=== PATIENT | female | born 1960 | race Caucasian/White ===

== ENCOUNTER 2017-02-07 13:26 | Emergency (ER) | payer SELFPAY ==
[~2017-02-07] VITALS: Ht 162.6 cm; Wt 59.0 kg
[2017-02-07 13:29] VITALS: BP 158/100; PULSE 102; RESP 20; TEMP 97.8; O2SAT 99
[2017-02-07] MEDS ORDERED: SODIUM CHLOR 0.9% 1000 ML INJ 1,000 ML IV SCH (13:52)
[2017-02-07 13:53] VITALS: O2SAT 97
--- NOTE | 2017-02-07 13:59 | PD ---
HPI Chief Complaint: Abdominal Pain Time Seen by Provider: 13:56 Travel History International Travel<30 days: No Contact w/Intl Traveler<30days: No Traveled to known affect area: No History of Present Illness HPI The patient comes in with her friend complaining of suprapubic abdominal pain ongoing for several weeks. Patient is pain radiates to her back. Patient states she is a alcoholic drinks a fifth of rum a day. Patient states she has intermittent vomiting. States that her bowel movements are gelatinous. Denies any blood in vomit or stool. Patient states pain is feels like a discomfort is constant. Patient also has concerns over lesions on lower extremities. Patient denies bumping into anything or falls. Denies any headache, chest pain , shortness of breath, or fevers. Patient states her only medical history is hypertension. Patient states that only things she been doing for this is drinking more rum. Patient states she last drank just prior to arrival. PFSH Past Medical History Cardiovascular Problems: Yes (HTN) Hypertension: Yes ?: Not Past Surgical History Hysterectomy: Yes Social History Alcohol Use: Yes (significant ) Tobacco Use: Yes Substance Use: No Allergies-Medications (Allergen,Severity, Reaction): Coded Allergies: No Known Allergies (Unverified , 02/07/17) Reported Meds & Prescriptions Reported Meds & Active Scripts Active Mupirocin Topical (Mupirocin) 2 % Oint 1 Applic TOPICAL BID Review of Systems Except as stated in HPI: all other systems reviewed are Neg Physical Exam Narrative GENERAL: Well-developed, overly nourished, in no acute distress, and non-ill appearing. SKIN: Focused skin assessment warm and dry. Patient has erythematous patches bilateral lower extremity appears possible mild dermatitis. Does not appear cellulitis. There is no crepitus, abscess, or drainage. They are nontender, nonindurated, and afebrile. HEAD: Atraumatic. Normocephalic. EYES: Pupils equal and round. EOMI. No scleral icterus. No injection or drainage. ENT: No nasal bleeding or discharge. Mucous membranes pink and moist. NECK: Trachea midline. No JVD. Supple. No nuclear rigidity. CARDIOVASCULAR: Regular rate and rhythm. No murmur appreciated. RESPIRATORY: No accessory muscle use. No respiratory distress. Clear to auscultation. Breath sounds equal bilaterally. GASTROINTESTINAL: Abdomen soft, non-tender, nondistended. Hepatic margin is palpable. Splenic margins not palpable. Normal bowel sounds 4. No pulsatile mass. MUSCULOSKELETAL: No obvious deformities. No clubbing. No cyanosis. No edema. Full range of motion. NEUROLOGICAL: Awake and alert. No obvious cranial nerve deficits. Motor grossly within normal limits. Normal speech. PSYCHIATRIC: Appropriate mood and affect; insight and judgment normal. Data Data Last Documented VS Vital Signs Date Time Temp Pulse Resp B/P Pulse Ox O2 Delivery O2 Flow Rate FiO2 02/07/17 16:46 73 18 130/85 96 Room Air 02/07/17 13:29 97.8 Orders Complete Blood Count With Diff (02/07/17 13:52) Comprehensive Metabolic Panel (02/07/17 13:52) Lipase (02/07/17 13:52) Prothrombin Time / Inr (Pt) (02/07/17 13:52) Act Partial Throm Time (Ptt) (02/07/17 13:52) Urinalysis - C+S If Indicated (02/07/17 13:52) Ct Abd/Pel W/O Iv Contrast (02/07/17 13:52) Iv Access Insert/Monitor (02/07/17 13:52) Ecg Monitoring (02/07/17 13:52) Oximetry (02/07/17 13:52) Ondansetron Inj (Zofran Inj) (02/07/17 14:00) Sodium Chlor 0.9% 1000 Ml Inj (Ns 1000 M (02/07/17 13:52) Sodium Chloride 0.9% Flush (Ns Flush) (02/07/17 14:00) Electrocardiogram (02/07/17 13:52) Chest, Single Ap (02/07/17 ) Mandatory Outpatient Referral (02/07/17 16:12) Labs Laboratory Tests Test 02/07/17 02/07/17 14:00 15:15 White Blood Count 7.7 TH/MM3 Red Blood Count 3.87 MIL/MM3 Hemoglobin 12.3 GM/DL Hematocrit 35.8 % Mean Corpuscular Volume 92.5 FL Mean Corpuscular Hemoglobin 31.8 PG Mean Corpuscular Hemoglobin 34.4 % Concent Red Cell Distribution Width 15.9 % Platelet Count 138 TH/MM3 Mean Platelet Volume 9.4 FL Neutrophils (%) (Auto) 60.2 % Lymphocytes (%) (Auto) 24.2 % Monocytes (%) (Auto) 10.4 % Eosinophils (%) (Auto) 3.9 % Basophils (%) (Auto) 1.3 % Neutrophils # (Auto) 4.7 TH/MM3 Lymphocytes # (Auto) 1.9 TH/MM3 Monocytes # (Auto) 0.8 TH/MM3 Eosinophils # (Auto) 0.3 TH/MM3 Basophils # (Auto) 0.1 TH/MM3 CBC Comment DIFF FINAL Differential Comment Prothrombin Time 9.8 SEC Prothromb Time International 0.9 RATIO Ratio Activated Partial 25.4 SEC Thromboplast Time Sodium Level 136 MEQ/L Potassium Level 3.9 MEQ/L Chloride Level 94 MEQ/L Carbon Dioxide Level 25.2 MEQ/L Anion Gap 17 MEQ/L Blood Urea Nitrogen 9 MG/DL Creatinine 0.76 MG/DL Estimat Glomerular Filtration 79 ML/MIN Rate Random Glucose 107 MG/DL Calcium Level 9.3 MG/DL Total Bilirubin 0.3 MG/DL Aspartate Amino Transf 307 U/L (AST/SGOT) Alanine Aminotransferase 97 U/L (ALT/SGPT) Alkaline Phosphatase 136 U/L Total Protein 7.9 GM/DL Albumin 4.0 GM/DL Lipase 244 U/L Urine Color LIGHT-YELLOW Urine Turbidity CLEAR Urine pH 6.0 Urine Specific [place] 1.004 Urine Protein TRACE mg/dL Urine Glucose (UA) NEG mg/dL Urine Ketones NEG mg/dL Urine Occult Blood SMALL Urine Nitrite NEG Urine Bilirubin NEG Urine Urobilinogen LESS THAN 2.0 MG/DL Urine Leukocyte Esterase NEG Urine RBC 1 /hpf Urine WBC 1 /hpf Urine Squamous Epithelial 1 /hpf Cells Urine Bacteria RARE /hpf Microscopic Urinalysis Comment CULT NOT INDICATED MDM Medical Decision Making Medical Screen Exam Complete: Yes Emergency Medical Condition: Yes Interpretation(s) EKG reviewed by Dr. Sotomayor shows sinus rhythm with ventricular rate of 80. No STEMI CT abdomen and pelvis read by the radiologist shows: 1. Hepatic steatosis with indeterminate masses in the right lobe. 2. No inflammatory changes are identified within the abdomen or pelvis. Chest x-ray or a radiologist shows: Normal examination. Differential Diagnosis Anemia, UTI, electrolyte abnormality, pancreatitis, diverticulitis, alcohol abuse, alcohol intoxication, mass, cirrhosis, liver failure, other Narrative Course The patient presented with nonspecific abdominal pain. There was no significant history of vomiting or diarrhea and no fever. The patient appeared comfortable, well hydrated and the abdominal exam was mildly tender without guarding or rebound and no focal tenderness to me. Laboratory and radiologic/CT evaluation revealed no significant abnormalities. There was no evidence of an acute, surgical abdomen at this time. There was no clinical evidence to support appendicitis, bowel obstruction, cholecystitis/cholelithiasis, pancreatitis, perforation of gastric ulcer, colitis, diverticulitis, bacterial peritonitis, obstruction, volvulus, hernial incarceration or strangulation at this time. There was no evidence to support vascular pathology such as AAA, mesenteric ischemia. There was also no clinical evidence by history, exam or risk factors to suggest atypical presentation of cardiac disease such as ACS, AMI or atypical angina. No evidence to suggest genitourinary etiology as well. Clinical picture was discussed with the patient, as well as plan of care. The patient was instructed to follow up with their physician. Abdominal pain warnings were discussed with the patient. The patient is to return if worsens, pain worsens or changes, develop fever, inability to tolerate fluids with or without vomiting, unable to establish follow up or as needed. The patient agrees with plan. The patient presented with nonspecific rash/dermatitis. There were no blisters or bullae, target lesions, purpura or petechia, nor vesiculobullous or scarlatiniform lesions. The patient looks great and was non-ill appearing. There was no evidence to suggest scabies, cellulitis, folliculitis or abscess, Staph. Scalded Skin Syndrome, Toxic Shock, Toxic Epidermal necrolysis, Kawasaki s, Measles, Rubella, cutaneous T cell lymphoma, Erythema Multiforme (minor or major). Plan of care was discussed with the patient and the patient is to follow up with their physician. The patient agreed with plan. Patient in no obvious distress upon re-evaluation. All pertinent laboratory/ Radiology result(s) discussed with patient. Discussed patient with Dr. Sotomayor prior to discharge, who is in agreement with plan of care and disposition. Patient was asked if they wanted to speak to my attending, which the patient did not wish to do at this time. Any questions/concerns in reference to patient diagnosis/condition discussed and clarified prior to patient's discharge. Reinforced sheer importance of close follow up with patient's primary physician or primary care clinic, GI, and detox center. Instructed patient to return to ED immediately, if symptoms return/worsen. Pt showed understanding of above instructions. Further instructions and recommendations were detailed in discharge paperwork. Pt ambulated without difficulty out of ED at discharge. Diagnosis Primary Impression: Hepatic steatosis Additional Impressions: Liver mass, right lobe Alcohol abuse Rash and nonspecific skin eruption Referrals: [facility] Primary Care Physician [facility] Patient Instructions: Abuse of Alcohol (ED), Acute Rash (ED), General Instructions Additional Instructions: Follow-up with your primary care physician and/or [facility] this week for alcohol detox. Follow up with GI this week for further evaluation of incidental CT scan findings today. Cut back on alcohol use. Use all medication as prescribed. Use [id number] moisturizing lotion to help symptomatic relief bilateral lower extremities. Return to the emergency department if symptoms get worse. Med/Other Pt SpecificInfo: Prescription(s) given Scripts Mupirocin Topical 2 % Oint1 Applic TOPICAL BID #1 TUBE Ref 0 Prov:Horacio Sotomayor MD 02/07/17 Disposition: 01 DISCHARGE HOME Condition: Stable Ousmane Wilson February 07, 2017 13:59
[2017-02-07] MEDS ORDERED: SODIUM CHLORIDE 0.9% FLUSH 10 ML FLUSH IV FLUSH PRN (14:00)
[2017-02-07] MEDS ORDERED: ONDANSETRON HCL 4 MG/2 ML VIAL IVP ONE (14:00)
--- NOTE | 2017-02-07 14:28 | RADRPT ---
EXAM DATE/TIME: 02/07/2017 14:15 [facility] COMPARISON: No previous studies available for comparison. INDICATIONS : Abdominal pain for one month with nausea and vomiting. ORAL CONTRAST: No oral contrast ingested. RADIATION DOSE: 4.76 CTDIvol (mGy) MEDICAL HISTORY : Cardiovascular disease. Hypertension. SURGICAL HISTORY : Hysterectomy. ENCOUNTER: Initial ACUITY: 1 month PAIN SCALE: 5/10 LOCATION: Bilateral lower quadrant abdominal TECHNIQUE: Volumetric scanning of the abdomen and pelvis was performed. Using automated exposure control and ad justment of the mA and/or kV according to patient size, radiation dose was kept as low as reasonably achievable to obtain optimal diagnostic quality images. FINDINGS: There is diffuse hepatic steatosis. Gallbladder, spleen, pancreas, adrenal glands are unremarkable. I n the anterior right lobe of the liver a rounded area of increased density is seen measuring 1.1 cm o n image 13 a as well as a rounded area of increased attenuation in the posterior right lobe measuring 8 mm on image 28, and in the medial right lobe measuring 9.1 m on image 25. Kidneys are unremarkable . Appendix normal. Urinary bladder is unremarkable. There is diverticulosis of the sigmoid colon. No obstruction, free fluid or free air. Calcified granulomas at the left lung base. Degenerative changes of the spine. CONCLUSION: 1. Hepatic steatosis with indeterminate masses in the right lobe. 2. No inflammatory changes are identified within the abdomen or pelvis. Gokul Miller MD on February 07, 2017 at 14:24 Board Certified Radiologist. This report was verified electronically.
[2017-02-07 14:32] LABS: AUTOMATED NEUTROPHIL # 4.7 TH/MM3 (1.8-7.7); BASOPHIL # 0.1 TH/MM3 (0-0.2); BASOPHIL % 1.3 % (0.0-2.0); EOSINOPHIL # 0.3 TH/MM3 (0-0.4); EOSINOPHIL % 3.9 % (0.0-4.0); HEMATOCRIT 35.8 % (35.0-46.0); HEMO FLAGS DIFF FINAL; LYMPH % 24.2 % (9.0-44.0); LYMPHOCYTE # 1.9 TH/MM3 (1.0-4.8); MEAN CELL VOLUME 92.5 FL (80.0-100.0); MEAN CORPUSCULAR HEMOGLOBIN 31.8 PG (27.0-34.0); MEAN CORPUSCULAR HGB CONC 34.4 % (32.0-36.0); MONO % 10.4 % (0.0-8.0); NEUT % 60.2 % (16.0-70.0); PLATELET COUNT 138 TH/MM3 (150-450); RED BLOOD COUNT 3.87 MIL/MM3 (4.00-5.30); RED CELL DISTRIBUTION WIDTH 15.9 % (11.6-17.2); WHITE BLOOD COUNT 7.7 TH/MM3 (4.0-11.0)
--- NOTE | 2017-02-07 14:42 | RADRPT ---
EXAM DATE/TIME: 02/07/2017 14:29 [facility] COMPARISON: No previous studies available for comparison. INDICATIONS : Chest pain. MEDICAL HISTORY : None. SURGICAL HISTORY : None. ENCOUNTER: Initial ACUITY: 1 day PAIN SCORE: 0/10 LOCATION: Bilateral chest FINDINGS: A single view of the chest demonstrates the lungs to be symmetrically aerated without evidence of mas s, infiltrate or effusion. The cardiomediastinal contours are unremarkable. Osseous structures are intact. CONCLUSION: Normal examination. Gokul Miller MD on February 07, 2017 at 14:41 Board Certified Radiologist. This report was verified electronically.
[2017-02-07 14:43] LABS: APTT (PATIENT) 25.4 SEC (24.3-30.1); INTERNATIONAL NORMALIZED RATIO 0.9 RATIO; PROTHROMBIN TIME - PATIENT 9.8 SEC (9.8-11.6)
[2017-02-07 14:48] LABS: ALKALINE PHOSPHATASE 136 U/L (45-117); TOTAL BILIRUBIN ADULT 0.3 MG/DL (0.2-1.0)
[2017-02-07 15:21] LABS: ALT (GPT) 97 U/L (10-53); ANION GAP 17 MEQ/L (5-15); AST (GOT) 307 U/L (15-37); BICARBONATE 25.2 MEQ/L (21.0-32.0); BLOOD UREA NITROGEN 9 MG/DL (7-18); CHLORIDE 94 MEQ/L (98-107); GLOMERULAR FILTRATION RATE 79 ML/MIN (>89); POTASSIUM 3.9 MEQ/L (3.5-5.1); SODIUM (NA) 136 MEQ/L (136-145)
[2017-02-07 16:05] LABS: BACTERIA, URINE RARE /hpf; BLOOD, URINE SMALL (NEG); COMMENT (UR) CULT NOT INDICATED; CULTURE IF INDICATED CULT NOT INDICATED; GLUCOSE,URINE NEG (NEG); KETONE, URINE NEG (NEG); NITRITE,URINE NEG (NEG); SQUAMOUS EPITHELIAL CELL URINE 1 /hpf (0-5); URINE COLOR LIGHT-YELLOW (YELLW/STRAW)
[2017-02-07] MEDS ORDERED: MUPI2OIN TOPICAL (16:23)
[2017-02-07 16:46] VITALS: BP 130/85; PULSE 73; RESP 18; O2SAT 96
--- NOTE | 2017-02-08 14:31 | EKG ---
Date Performed: 02/07/2017 Time Performed: 14:07:22 PTAGE: 56 years EKG: Sinus rhythm INCOMPLETE RIGHT BUNDLE BRANCH BLOCK Anterior ST-T wave changes, this may be in part due to the inco mplete right bundle branch block that is nonspecific. ABNORMAL ECG NO PREVIOUS TRACING DOCTOR: Jovanni Dominique Interpretating Date/Time 02/08/2017 14:31:00
== END 2017-02-07 16:55 | disposition home or self-care (01) ==
LOC: NEPE 13:26
DX: K76.0 Fatty (change of) liver, not elsewhere classified (principal); R16.0 Hepatomegaly, not elsewhere classified; F10.10 Alcohol abuse, uncomplicated; R21 Rash and other nonspecific skin eruption; R11.10 Vomiting, unspecified; I10 Essential (primary) hypertension; Z72.0 Tobacco use; R94.31 Abnormal electrocardiogram [ECG] [EKG]
CPT/HCPCS: 71010; 74176; 80053; 81001; 83690; 85025; 85610; 85730; 93005; 96361; 96374; 99285; J2405; J7030